=== PATIENT | female | born 1995 | race Caucasian/White ===

== ENCOUNTER 2019-12-28 16:32 | Emergency (ER) | payer BC ==
[~2019-12-28] VITALS: Ht 157.5 cm; Wt 45.4 kg
[2019-12-28 16:40] VITALS: BP_SYST 111
[2019-12-28] MEDS ORDERED: KETOROLAC TROMETHAMINE 60 MG/2 ML VIAL IM ONE (17:00)
[2019-12-28 18:02] VITALS: BP_SYST 111
== END 2019-12-28 18:02 | disposition home or self-care (01) ==
LOC: SED 16:32
DX: S09.90XA Unspecified injury of head, initial encounter (principal); W20.8XXA Other cause of strike by thrown, projected or falling object, initial encounter; Y93.89 Activity, other specified; Y92.89 Other specified places as the place of occurrence of the external cause; Y99.8 Other external cause status
CPT/HCPCS: 70450; 81025; 96372; 99284; J1885